=== PATIENT | female | born 1970 | race Caucasian/White ===

== ENCOUNTER 2022-01-13 16:47 | Emergency (ER) | payer OTHER ==
[2022-01-13 16:56] VITALS: BP 114/78; PULSE 82; TEMP 98.8; BMI 22.1
[2022-01-13] MEDS ORDERED: DEXAMETHASONE 4 MG TABLET (FP) PO ONE (17:02)
[2022-01-13] MEDS ORDERED: DIPHENHYDRAMINE HCL 25 MG/10 ML CUP PO ONE (17:03)
[2022-01-13] MEDS ORDERED: DEXAMETHASONE 4 MG TABLET (FP) ONE (17:07)
[2022-01-13] MEDS ORDERED: diphenhydrAMINE HCL 50 MG CAPSULE ONE (17:07)
== END 2022-01-13 17:29 | disposition home or self-care (01) ==
LOC: FER 16:47
DX: L74.0 Miliaria rubra (principal); L25.9 Unspecified contact dermatitis, unspecified cause
CPT/HCPCS: 99283-25